=== PATIENT | female | born 1970 | race Caucasian/White ===

== ENCOUNTER → 2016-05-19 | Outpatient (CLI) | payer BC ==
--- NOTE | 2016-05-19 12:39 | MAMMOGRAPHY REPORT ---
BILATERAL DIGITAL SCREENING MAMMOGRAM TOMOSYNTHESIS WITH CAD: 05/19/2016 CLINICAL HISTORY: Routine screening examination. TECHNIQUE: Bilateral CC and MLO 2-D digital and tomosynthesis images, repeat 2-D left MLO views were obtained. Current study was also evaluated with a Computer Aided Detection (CAD) system. COMPARISON: Comparison is made to exams dated: 05/16/2015 mammogram, 05/14/2014 mammogram, 06/23/2011 m ammogram, 05/11/2013 mammogram, 01/12/2012 mammogram, and 07/06/2011 mammogram - [facility]. BREAST COMPOSITION: There are scattered areas of fibroglandular density in both breasts. FINDINGS: A square mole marker overlies the lower inner posterior right breast. There is a stable 4 .5 mm circumscribed mass in the lateral right breast, stable compared to all available prior mammogr ams and most compatible with an intramammary lymph node. There are benign appearing micro-calcifica tions scattered bilaterally. No new suspicious mass, architectural distortion or cluster of microca lcifications is seen. IMPRESSION: ACR BI-RADS CATEGORY 1: NEGATIVE There is no mammographic evidence of malignancy. A 1 year screening mammogram is recommended. The p atient will receive written notification of the results. Approximately 10% of breast cancers are not detected with mammography. A negative mammographic repor t should not delay biopsy if a clinically suggestive mass is present. Kylee Nicholas M.D. ay/:05/19/2016 12:13:35 Heating Element Builder: Myranda IBRAHIM(Chris)(Erik), [facility] letter sent: Normal 1/2 BI-RADS Code: ACR BI-RADS Category 1: Negative
== END | disposition home or self-care (01) ==
LOC: C.MAMM 09:45
PROVIDERS: ATTEND Obstetrics & Gynecology
DX: Z12.31 Encounter for screening mammogram for malignant neoplasm of breast (principal)

== ENCOUNTER → 2016-08-10 | Outpatient (CLI) | payer BC | END | disposition home or self-care (01) | LOC: C.PAPS 14:49 | PROVIDERS: ATTEND Obstetrics & Gynecology | DX: Z01.411 Encounter for gynecological examination (general) (routine) with abnormal findings (principal); R87.610 Atypical squamous cells of undetermined significance on cytologic smear of cervix (ASC-US) ==

== ENCOUNTER → 2017-05-23 | Outpatient (CLI) | payer OTHER ==
--- NOTE | 2017-05-24 07:46 | MAMMOGRAPHY REPORT ---
BILATERAL DIGITAL SCREENING MAMMOGRAM TOMOSYNTHESIS WITH CAD: 05/23/2017 CLINICAL HISTORY: Routine screening. Patient has no complaints. TECHNIQUE: Breast tomosynthesis in addition to standard 2D mammography was performed. Current study was also evaluated with a Computer Aided Detection (CAD) system. COMPARISON: Comparison is made to exams dated: 05/19/2016 mammogram, 05/16/2015 mammogram, 05/14/2014 m ammogram, 05/11/2013 mammogram, 08/09/2012 mammogram, and 01/12/2012 mammogram - [facility]. BREAST COMPOSITION: There are scattered areas of fibroglandular density in both breasts. FINDINGS: There are grouped calcifications in the 6:00 and lower outer middle to anterior left breas t, for which additional spot magnification views are recommended. There is a stable intramammary lymph node in the lateral right breast. No other suspicious mass, arch itectural distortion or cluster of microcalcifications is seen. IMPRESSION: ACR BI-RADS CATEGORY 0: INCOMPLETE EVALUATION: NEED ADDITIONAL IMAGING EVALUATION The grouped calcifications in the 6:00 and lower outer left breast need additional evaluation. The patient will be called to schedule an appointment. Approximately 10% of breast cancers are not detected with mammography. A negative mammographic report should not delay biopsy if a clinically suggestive mass is present. Kylee Nicholas M.D. ay/:05/23/2017 11:45:17 Etl Architect: Myranda Mendiola, [facility] letter sent: Addl Imaging 0 BI-RADS Code: ACR BI-RADS Category 0: Incomplete Evaluation: Need Additional Imaging Evaluation
== END | disposition home or self-care (01) ==
LOC: C.MAMM 10:00
PROVIDERS: ATTEND Obstetrics & Gynecology
DX: Z12.31 Encounter for screening mammogram for malignant neoplasm of breast (principal); R92.1 Mammographic calcification found on diagnostic imaging of breast

== ENCOUNTER → 2017-06-01 | Outpatient (CLI) | payer OTHER ==
--- NOTE | 2017-06-02 07:58 | MAMMOGRAPHY REPORT ---
UNILATERAL LEFT DIGITAL DIAGNOSTIC MAMMOGRAM: 06/01/2017 CLINICAL HISTORY: Callback from screening mammography for possible microcalcifications in the left br east. TECHNIQUE: Spot magnification left CC and ML views were obtained. COMPARISON: Comparison is made to exams dated: 05/19/2016 mammogram, 05/23/2017 mammogram, 05/16/2015 ma mmogram, 05/14/2014 mammogram, 05/11/2013 mammogram, and 08/09/2012 mammogram - [facility]ter. BREAST COMPOSITION: There are scattered areas of fibroglandular density in the left breast. FINDINGS: The spot magnification views of the left breast demonstrate a loose grouping of round, pun ctate and amorphous microcalcifications in the 3:00 to 4:00 anterior left breast, measuring approxima tely 14 mm in AP dimension. When comparing back to all available prior mammograms, the microcalcific ations appear increased and are therefore indeterminate given the somewhat linear distribution. Defi nitive characterization with a stereotactic guided biopsy is recommended. No obvious associated mass or architectural distortion. IMPRESSION: ACR BI-RADS CATEGORY 4: SUSPICIOUS 1. Left breast stereotactic guided biopsy is recommended for a 14 mm linear grouping of increasing r ound, punctate and amorphous microcalcifications in the 3:00 to 4:00 anterior breast these results an d recommendations were discussed with the patient at the time of the exam. The patient is unsure she wants to undergo needle biopsy and would prefer to discuss this with her OB /[employer] provider prior to scheduling the appointment. Approximately 10% of breast cancers are not detected with mammography. A negative mammographic report should not delay biopsy if a clinically suggestive mass is present. Kylee Nicholas M.D. ay/:06/01/2017 09:42:17 Electric Meter Tester Shop: Tierra Merchant RT(R)(Erik), [facility] letter sent: Abnormal 4/5 BI-RADS Code: ACR BI-RADS Category 4: Suspicious
== END | disposition home or self-care (01) ==
LOC: C.MAMM 08:51
PROVIDERS: ATTEND Obstetrics & Gynecology
DX: R92.1 Mammographic calcification found on diagnostic imaging of breast (principal); R92.0 Mammographic microcalcification found on diagnostic imaging of breast